=== PATIENT | female | born 1975 ===

== ENCOUNTER 2016-07-01 08:39 | Emergency (ER) | payer MEDICAID ==
[2016-07-01 08:40] VITALS: BMI 27.6
[2016-07-01 08:51] VITALS: RESP 18
[2016-07-01] MEDS ORDERED: Sodium Chloride 0.9% 1,000 ML IV ONE (09:37)
--- NOTE | 2016-07-01 09:48 | C.PDOC ---
History Of Present Illness 40-year-old female, PMHx includes Anemia and ovarian cysts, presents to the emergency department with complaints of left-sided pelvic pain that is dull and constant since yesterday. Patient notes associated hematuria/dysuria. She denies diarrhea, fever, vaginal bleeding/discharge, vomiting/diarrhea. LMP was 06/18. Time Seen by Provider: 07/01/16 09:02 Chief Complaint (Nursing): Female Genitourinary History Per: Patient History/Exam Limitations: no limitations Onset/Duration Of Symptoms: Days Current Symptoms Are (Timing): Still Present Severity: Mild Quality Of Discomfort: "Pain" Past Medical History Reviewed: Historical Data, Nursing Documentation, Vital Signs Vital Signs: Last Vital Signs Temp 97.9 F 07/01/16 11:25 Pulse 77 07/01/16 11:25 Resp 18 07/01/16 11:25 BP 109/72 07/01/16 11:25 Pulse Ox 98 07/01/16 12:11 - Medical History PMH: Anemia, Peripheral Edema Family History: States: No Known Family Hx - Social History Hx Alcohol Use: No Hx Substance Use: No - Immunization History Hx Tetanus Toxoid Vaccination: No Hx Influenza Vaccination: No Hx Pneumococcal Vaccination: No Review Of Systems Except As Marked, All Systems Reviewed And Found Negative. Constitutional: Negative for: Fever, Chills Cardiovascular: Negative for: Chest Pain Respiratory: Negative for: Shortness of Breath Gastrointestinal: Negative for: Nausea, Vomiting, Diarrhea Genitourinary: Positive for: Dysuria, Hematuria. Negative for: Vaginal Discharge, Vaginal Bleeding Musculoskeletal: Positive for: Back Pain Skin: Negative for: Rash Neurological: Negative for: Headache, Dizziness Physical Exam - Physical Exam Appears: Well, Non-toxic, No Acute Distress Skin: Warm, Dry, No Rash Eye(s): bilateral: Normal Inspection Oral Mucosa: Moist Cardiovascular: Rhythm Regular Respiratory: Normal Breath Sounds, No Rales, No Rhonchi, No Wheezing Gastrointestinal/Abdominal: Normal Exam, Bowel Sounds, Soft, No Tenderness, No Guarding, No Rebound Back: No CVA Tenderness Pelvic: Normal External Exam, Normal Bimanual Exam, No Vaginal Bleeding, Vaginal Discharge (scant thin white discharge), No Cervical Motion Tenderness, No Cervix Open, No Adnexal Tenderness, No Mass, No Tender Uterus Extremity: Normal ROM Neurological/Psych: Oriented x3 ED Course And Treatment - Laboratory Results Result Diagrams: 07/01/16 10:18 07/01/16 10:18 O2 Sat by Pulse Oximetry: 98 (RA) Pulse Ox Interpretation: Normal Progress Note: Plan: Blood work, UA, UPreg, transvaginal US ordered and reviewed. Patient given IV NS bolus, did not want pain medication. UA shows UTI, patient given PO Ciprofloxacin. Reevaluation Time: 12:10 Reassessment Condition: Improved (Patient reassessed, is resting comfortably and states she feels better. Patient given Rx for Ciprofloxacin, and was instructed to follow up with her PMD in 1-2 days, an performance improvement specialist within 1 week. Copies of blood work, UA and transvaginal US given to patient. She understands she should return to ED if symptoms worsen.) Disposition Counseled Patient/Family Regarding: Studies Performed, Diagnosis, Need For Followup, Rx Given - Disposition Referrals: Tracy Meek MD [Resident] - Disposition: HOME/ ROUTINE Disposition Time: 12:15 Condition: STABLE Additional Instructions: FOLLOW UP WITH YOUR DOCTOR IN 1-2 DAYS, AND WITH [employer] WITHIN 1 WEEK USE MEDICATION DIRECTED DRINK PLENTY OF FLUIDS RETURN TO ER IF SYMPTOMS WORSEN Prescriptions: Ciprofloxacin [Cipro] 1 tab PO BID #14 tab Instructions: Urinary Tract Infection in Women (ED) Print Language: ANGUILLAN - POA Present On Arrival: None - Clinical Impression Clinical Impression: UTI (urinary tract infection), Acute hemorrhagic cystitis - Scribe Statement The provider has reviewed the documentation as recorded by the Kael Maloney All medical record entries made by the Kael were at my direction and personally dictated by me. I have reviewed the chart and agree that the record accurately reflects my personal performance of the history, physical exam, medical decision making, and the department course for this patient. I have also personally directed, reviewed, and agree with the discharge instructions and disposition.
[2016-07-01 09:53] LABS: RBC URINE 54 /hpf (0-3); URINE BACTERIA OCC (<OCC); URINE BILIRUBIN NEGATIVE (NEGATIVE); URINE BLOOD 2+ (NEGATIVE); URINE COLOR Yellow (YELLOW); URINE GLUCOSE (UA) NORMAL (Normal); URINE KETONE NEGATIVE (NEGATIVE); URINE LEUKOCYTE ESTERASE 3+ Leu/uL (Negative); URINE PROTEIN 1+ mg/dL (NEGATIVE); URINE UROBILINOGEN NORMAL mg/dL (0.2-1.0); WBC URINE 290 /hpf (0-5)
[2016-07-01] MEDS ORDERED: Sodium Chloride 0.9% 1,000 ML ONE (10:20)
[2016-07-01 10:22] LABS: BASO # 0.1 K/uL (0.0-0.2); BASO % 0.9 % (0.0-2.0); EOS # 0.1 K/uL (0.0-0.7); EOS % 0.6 % (0.0-4.0); HEMATOCRIT 37.4 % (34.0-47.0); LYMPH # 2.5 K/uL (1.0-4.3); LYMPH % 21.8 % (20.0-40.0); MEAN CORPUSCULAR HEMOGLOBIN 27.3 pg (27.0-31.0); MEAN CORPUSCULAR HGB CONC 31.7 g/dL (33.0-37.0); MEAN PLATELET VOLUME 9.4 fL (7.2-11.7); MONO # 0.5 K/uL (0.0-0.8); RED CELL DISTRIBUTION WIDTH 15.5 % (11.5-14.5)
[2016-07-01 10:24] LABS: MEAN CELL VOLUME 86.2 fL (81.0-99.0); WHITE BLOOD COUNT 11.4 K/uL (4.8-10.8)
[2016-07-01 10:36] LABS: CHLORIDE 99 mmol/L (98-107); SODIUM 136 mmol/L (132-148)
[2016-07-01 10:39] LABS: ALB/GLOB RATIO 1.1 (1.0-2.1); ALKALINE PHOSPHATASE 53 U/L (38-126); AST/SGOT 45 U/L (14-36); BLOOD UREA NITROGEN 11 mg/dL (7-17); CARBON DIOXIDE 24 mmol/L (22-30); GFR AFRICAN-AMERICAN > 60; TOTAL PROTEIN 7.6 g/dL (6.3-8.3)
[2016-07-01 10:40] LABS: ALT/SGPT 15 U/L (9-52); CALCIUM 8.5 mg/dl (8.6-10.4); GLUCOSE,RANDOM 90 mg/dL (65-105); POTASSIUM 5.4 mmol/L (3.6-5.2)
[2016-07-01 11:39] VITALS: BP 109/72; PULSE 77; TEMP 97.9
--- NOTE | 2016-07-01 11:43 | US ---
HISTORY: Left adnexal pain COMPARISON: None available. TECHNIQUE: Transvaginal pelvic ultrasound was performed. FINDINGS: UTERUS: Measures 8.7 x 4.7 x 5.0 cm. Anteverted, normal in size without evidence of fibroid or focal mass. There is slight heterogeneous myometrial echotexture with. No fibroid or other mass lesion seen. ENDOMETRIUM: Measures 7 mm in diameter. Unremarkable. CERVIX: No cervical abnormality identified. RIGHT OVARY: Measures 3.7 x 1.8 x 3.1 cm. No solid mass. Normal flow. LEFT OVARY: Measures 4.0 x 1.7 x 3.0 cm. No solid mass. Normal flow. FREE FLUID: No significant free fluid noted. OTHER FINDINGS: None. IMPRESSION: Mild heterogeneous myometrial echotexture. No evidence of fibroid uterus No evidence of ovarian mass or cyst.
[2016-07-01 12:07] VITALS: O2SAT 98
== END 2016-07-01 12:30 | disposition home or self-care (01) ==
LOC: C.ER 08:39
DX: N30.01 Acute cystitis with hematuria (principal)
CPT/HCPCS: 76830; 80053; 81001; 84703; 85025; 87086; 87181; 87491; 87591; 99285; J7040

== ENCOUNTER 2017-01-14 16:59 | Emergency (ER) | payer MEDICAID ==
[2017-01-14 17:00] VITALS: BMI 27.6
[2017-01-14 17:06] VITALS: TEMP 98.9; O2SAT 100
[2017-01-14 18:15] LABS: BASO # 0.1 K/uL (0.0-0.2); BASO % 1.3 % (0.0-2.0); EOS # 0.1 K/uL (0.0-0.7); EOS % 1.4 % (0.0-4.0); HEMATOCRIT 36.2 % (34.0-47.0); LYMPH % 36.2 % (20.0-40.0); MEAN CELL VOLUME 87.7 fL (81.0-99.0); MEAN CORPUSCULAR HEMOGLOBIN 28.7 pg (27.0-31.0); MEAN CORPUSCULAR HGB CONC 32.8 g/dL (33.0-37.0); MEAN PLATELET VOLUME 9.1 fL (7.2-11.7); MONO # 0.6 K/uL (0.0-0.8); MONO % 6.6 % (0.0-10.0); NRBC % 0.1 % (0.0-2.0); RED CELL DISTRIBUTION WIDTH 14.6 % (11.5-14.5); WHITE BLOOD COUNT 8.4 K/uL (4.8-10.8)
[2017-01-14 18:22] LABS: CHLORIDE 101 mmol/L (98-107); SODIUM 135 mmol/L (132-148)
[2017-01-14 18:23] LABS: POTASSIUM 4.1 mmol/L (3.6-5.2)
[2017-01-14 18:25] LABS: ALB/GLOB RATIO 1.1 (1.0-2.1); ALKALINE PHOSPHATASE 59 U/L (38-126); ALT/SGPT 32 U/L (9-52); AST/SGOT 18 U/L (14-36); BILIRUBIN,TOTAL 0.4 mg/dL (0.2-1.3); BLOOD UREA NITROGEN 11 mg/dL (7-17); CALCIUM 8.8 mg/dl (8.6-10.4); CARBON DIOXIDE 23 mmol/L (22-30); GFR AFRICAN-AMERICAN > 60; GLUCOSE,RANDOM 87 mg/dL (65-105); TOTAL PROTEIN 7.3 g/dL (6.3-8.3)
--- NOTE | 2017-01-14 18:52 | RAD ---
HISTORY: chest pain COMPARISON: Comparison is made to 04/06/2015 TECHNIQUE: Chest PA and lateral FINDINGS: LUNGS: No active pulmonary disease. PLEURA: No significant pleural effusion identified. No pneumothorax apparent. CARDIOVASCULAR: Normal. OSSEOUS STRUCTURES: No significant abnormalities. VISUALIZED UPPER ABDOMEN: Normal. OTHER FINDINGS: None. IMPRESSION: No active disease.
[2017-01-14] MEDS ORDERED: Iodixanol 320 MG/ML 100 ML BOTTLE IV ONE (19:22)
--- NOTE | 2017-01-14 20:02 | C.PDOC ---
History Of Present Illness 41 year old female presents to the ED with complaints of sharp sub-sternal chest pain for two days that radiates to the back with associated shortness of breath. Patient is taking oral contraceptives and denies fever, cough, nausea, or vomiting. Chief Complaint (Nursing): Chest Pain History Per: Patient History/Exam Limitations: no limitations Onset/Duration Of Symptoms: Days (2 days ) Current Symptoms Are (Timing): Still Present Quality: Sharp Modifying Factors: None Exacerbating Factors: None Alleviating Factors: None Recent travel outside of the [place]: No Past Medical History Reviewed: Historical Data, Nursing Documentation, Vital Signs Vital Signs: Last Vital Signs Temp 98.9 F 01/14/17 17:03 Pulse 80 01/14/17 19:30 Resp 14 01/14/17 19:30 BP 120/80 01/14/17 19:30 Pulse Ox 100 01/14/17 22:01 - Medical History PMH: Anemia, Peripheral Edema Family History: States: Unknown Family Hx - Social History Hx Alcohol Use: No Hx Substance Use: No - Immunization History Hx Tetanus Toxoid Vaccination: No Hx Influenza Vaccination: No Hx Pneumococcal Vaccination: No Review Of Systems Constitutional: Negative for: Fever, Chills Cardiovascular: Positive for: Chest Pain. Negative for: Palpitations Respiratory: Negative for: Cough, Shortness of Breath Gastrointestinal: Negative for: Nausea, Vomiting, Abdominal Pain Neurological: Negative for: Weakness, Numbness Physical Exam - Physical Exam Appears: Non-toxic, No Acute Distress Skin: Warm, Dry Head: Atraumatic, Normacephalic Eye(s): bilateral: Normal Inspection, PERRL, EOMI Oral Mucosa: Moist Chest: Symmetrical, No Deformity Cardiovascular: Rhythm Regular, No Murmur Respiratory: No Rales, No Rhonchi, No Wheezing, Other (clear to auscultation bilaterally ) Gastrointestinal/Abdominal: Soft, No Tenderness, No Distention, No Guarding, No Rebound Extremity: Normal ROM, No Tenderness, No Pedal Edema, No Calf Tenderness, No Deformity, No Swelling Neurological/Psych: Oriented x3 ED Course And Treatment - Laboratory Results Result Diagrams: 01/14/17 18:11 01/14/17 18:11 ECG: Interpreted By Me, Viewed By Me ECG Rhythm: Sinus Rhythm Interpretation Of ECG: Normal axis. Incomplete right bundle branch block. Rate From EC O2 Sat by Pulse Oximetry: 100 (RA) - CT Scan/US CT Angiography Chest With Intravenous Contrast Other Rad Studies (CT/US): Read By Radiologist, Radiology Report Reviewed CT/US Interpretation: FINDINGS: Pulmonary arteries: No pulmonary embolism. Aorta: No aneurysm. No dissection. Lungs: Minimal atelectasis. No consolidation. RUL calcified granuloma. Pleural space: No significant effusion. No pneumothorax. Heart: No cardiomegaly. No significant pericardial effusion. Mediastinum: Soft tissue density within anterior mediastinum, likely residual thymus. Bones/joints: No acute fracture. No dislocation. Soft tissues : Unremarkable. Lymph nodes: No pathologically enlarged lymph nodes. IMPRESSION: 1. No CT evidence of pulmonary embolism. 2. Incidental/non-acute findings are described above. Progress Note: Angio chest CT, EKG, and labs were ordered. Patient was given Tordaol. Disposition - [facility] - Disposition: HOME/ ROUTINE Disposition Time: 21:20 Condition: GOOD Additional Instructions: Thank you for letting us take care of you today. Your provider was Dr. Yepez. You were treated for noncardiac chest pain. The emergency medical care you received today was directed at your acute symptoms. If you were prescribed any medication, please fill it and take as directed. It may take several days for your symptoms to resolve. Return to the Emergency Department if your symptoms worsen, do not improve, or if you have any other problems. Please contact your doctor or call one of the physicians/clinics you have been referred to that are listed on the Patient Visit Information form that is included in your discharge packet. Bring any paperwork you were given at discharge with you along with any medications you are taking to your follow up visit. Our treatment cannot replace ongoing medical care by a primary care provider (PCP) outside of the emergency department. Thank you for allowing the [facility] team to be part of your care today. Follow up with your doctor in 2-3 days for re-evaluation and further management. Prescriptions: Ibuprofen [Motrin] 600 mg PO Q6 PRN #20 tab PRN Reason: Pain, Moderate (4-7) Instructions: Noncardiac Chest Pain (ED) Forms: [employer] (Kosovan) - Clinical Impression Clinical Impression: Pleuritic pain - Scribe Statement The provider has reviewed the documentation as recorded by the Scribe Jenna Alvarado All medical record entries made by the Scribe were at my direction and personally dictated by me. I have reviewed the chart and agree that the record accurately reflects my personal performance of the history, physical exam, medical decision making, and the department course for this patient. I have also personally directed, reviewed, and agree with the discharge instructions and disposition.
--- NOTE | 2017-01-14 21:16 | CT ---
EXAM: CT Angiography Chest With Intravenous Contrast CLINICAL HISTORY: 41 years old, female; Signs and symptoms; Shortness of breath; Additional info: R/O pe TECHNIQUE: Axial computed tomographic angiography images of the chest with intravenous contrast using pulmonary embolism protocol. All CT scans at this facility use one or more dose reduction techniques, viz.: automated exposure control; ma/kV adjustment per patient size (including targeted exams where dose is matched to indication; i.e. head); or iterative reconstruction technique. MIP reconstructed images were created and reviewed. Coronal and sagittal reformatted images were created and reviewed. CONTRAST: 100 mL of visipaque 320 administered intravenously. COMPARISON: CR - CHEST TWO VIEWS (PA/LAT) 04/06/2015 10:57:46 AM FINDINGS: Pulmonary arteries: No pulmonary embolism. Aorta: No aneurysm. No dissection. Lungs: Minimal atelectasis. No consolidation. RUL calcified granuloma. Pleural space: No significant effusion. No pneumothorax. Heart: No cardiomegaly. No significant pericardial effusion. Mediastinum: Soft tissue density within anterior mediastinum, likely residual thymus. Bones/joints: No acute fracture. No dislocation. Soft tissues: Unremarkable. Lymph nodes: No pathologically enlarged lymph nodes. IMPRESSION: 1. No CT evidence of pulmonary embolism. 2. Incidental/non-acute findings are described above.
[2017-01-14 21:56] VITALS: BP 120/80; PULSE 80; RESP 14
--- NOTE | 2017-01-17 19:10 | CARD ---
APPROVED REPORT EKG Measurement Heart [id number] <Conclusion> Normal sinus rhythm Incomplete right bundle branch block Borderline ECG
== END 2017-01-14 21:56 | disposition home or self-care (01) ==
LOC: C.ER 16:59
DX: R07.81 Pleurodynia (principal)
CPT/HCPCS: 71020; 71275; 80053; 83690; 84484; 85025; 85378; 96374; 99285; J1885; Q9967

== ENCOUNTER 2018-02-07 14:41 | Emergency (ER) | payer MEDICAID ==
[2018-02-07 14:42] VITALS: BMI 27.6
[2018-02-07 15:23] VITALS: O2SAT 100
[2018-02-07] MEDS ORDERED: Sodium Chloride 0.9% 1,000 ML IV ONE (16:27)
[2018-02-07] MEDS ORDERED: Sodium Chloride 0.9% 1,000 ML ONE (16:57)
--- NOTE | 2018-02-07 17:24 | C.PDOC ---
History Of Present Illness 42-year-old female, presents to the emergency department with complaints of left sided back pain that started today, associated with hematuria and dysuria. (+) urinary frequency. Patient denies fever, nausea/vomiting, abdominal pain, chest pain, sob, vaginal bleeding. No h/o kidney stones. Time Seen by Provider: 02/07/18 16:17 Chief Complaint (Nursing): Back Pain History Per: Patient History/Exam Limitations: no limitations Past Medical History Reviewed: Historical Data, Nursing Documentation, Vital Signs Vital Signs: Last Vital Signs Temp 99.1 F 02/07/18 15:19 Pulse 82 02/07/18 15:19 Resp 18 02/07/18 15:19 BP 121/82 02/07/18 15:19 Pulse Ox 100 02/07/18 15:19 - Medical History PMH: Anemia, Peripheral Edema Family History: States: No Known Family Hx - Social History Hx Alcohol Use: No Hx Substance Use: No - Immunization History Hx Tetanus Toxoid Vaccination: No Hx Influenza Vaccination: No Hx Pneumococcal Vaccination: No Review Of Systems Constitutional: Negative for: Fever Gastrointestinal: Negative for: Nausea, Vomiting Genitourinary: Positive for: Dysuria, Hematuria Musculoskeletal: Positive for: Back Pain Physical Exam - Physical Exam Appears: Non-toxic, No Acute Distress Skin: Normal Color, Warm, Dry, No Rash Head: Atraumatic, Normacephalic Eye(s): bilateral: Normal Inspection, PERRL, EOMI Nose: Normal Oral Mucosa: Moist Lips: Normal Appearing Neck: Normal ROM, Supple Chest: Symmetrical Cardiovascular: Rhythm Regular Respiratory: Normal Breath Sounds, No Accessory Muscle Use Gastrointestinal/Abdominal: Soft, No Tenderness Back: CVA Tenderness (left), No Vertebral Tenderness Extremity: Normal ROM, No Deformity Neurological/Psych: Oriented x3, Normal Speech ED Course And Treatment - Laboratory Results Result Diagrams: 02/07/18 17:57 02/07/18 17:57 O2 Sat by Pulse Oximetry: 100 Pulse Ox Interpretation: Normal (RA) Progress Note: Bloodwork, CT Abd/Pel and UA ordered and reviewed. Patient treated with IVF, Toradol. On re-evlauation, pt is tolerating po. Afebrile. no acute distress. abdomen soft, nontender. Discussed results of CT with pt. Pt admits to constipation. Discussed diet changes. Copies of CT given for re- evaluation with PMD in 1-2 days. Discussed return precautions. Case discussed with Dr Ceja, who instructs Vitan and discharge. Disposition - Disposition Disposition: HOME/ ROUTINE Disposition Time: 18:49 Condition: STABLE Additional Instructions: Follow up with primary medical doctor in 1-3 days without fail for further evaluation. Take medications as prescribed. Return to the emergency department at any time if symptoms persist or worsen. Prescriptions: Cefpodoxime [Vantin] 100 mg PO BID #20 tab Phenazopyridine HCl [Pyridium] 100 mg PO TID #6 tablet Polyethylene Glycol 3350 [Miralax] 17 gm PO DAILY #85 gm Instructions: Kidney Infection (DC) Forms: [facility] (Martiniquais) - Clinical Impression Clinical Impression: Pyelonephritis - Scribe Statement The provider has reviewed the documentation as recorded by the Scribe (Rose Maloney) All medical record entries made by the Scribe were at my direction and personally dictated by me. I have reviewed the chart and agree that the record accurately reflects my personal performance of the history, physical exam, medical decision making, and the department course for this patient. I have also personally directed, reviewed, and agree with the discharge instructions and disposition.
[2018-02-07 18:01] LABS: BASO # 0.1 K/uL (0.0-0.2); BASO % 0.5 % (0.0-2.0); EOS # 0.1 K/uL (0.0-0.7); EOS % 1.3 % (0.0-4.0); HEMOGLOBIN 12.6 g/dL (11.0-16.0); LYMPH # 3.5 K/uL (1.0-4.3); LYMPH % 30.9 % (20.0-40.0); MEAN CELL VOLUME 88.6 fL (81.0-99.0); MEAN CORPUSCULAR HGB CONC 32.7 g/dL (33.0-37.0); MEAN PLATELET VOLUME 9.5 fL (7.2-11.7); MONO # 0.6 K/uL (0.0-0.8); MONO % 5.4 % (0.0-10.0); NEUT % 61.9 % (50.0-75.0); RBC 4.33 Mil/uL (3.80-5.20); RED CELL DISTRIBUTION WIDTH 14.3 % (11.5-14.5); WHITE BLOOD COUNT 11.3 K/uL (4.8-10.8)
[2018-02-07 18:08] LABS: HCG,QUALITATIVE URINE NEGATIVE (NEGATIVE)
[2018-02-07 18:13] LABS: SQUAMOUS EPITHIAL < 1 /hpf (0-5); URINE BACTERIA RARE (<OCC); URINE BILIRUBIN NEGATIVE (NEGATIVE); URINE BLOOD 1+ (NEGATIVE); URINE CLARITY Hazy (Clear); URINE COLOR Yellow (YELLOW); URINE GLUCOSE (UA) NORMAL (Normal); URINE LEUKOCYTE ESTERASE 3+ Leu/uL (Negative); URINE PROTEIN 2+ mg/dL (NEGATIVE)
[2018-02-07 18:15] LABS: ALB/GLOB RATIO 1.2 (1.0-2.1); ALBUMIN 3.9 g/dL (3.5-5.0); ALT/SGPT 19 U/L (9-52); AST/SGOT 17 U/L (14-36); BLOOD UREA NITROGEN 13 mg/dL (7-17); CALCIUM 8.8 mg/dl (8.6-10.4); GFR NON-AFRICAN AMERICAN > 60; LIPASE 84 U/L (23-300)
[2018-02-07] MEDS ORDERED: cefTRIAXone IV 1 gm in Dextros 50 ML IV ONE (18:16)
[2018-02-07] MEDS ORDERED: cefTRIAXone 1 gm 1 GM/100 ML BAG IVPB ONE (18:44)
--- NOTE | 2018-02-07 18:46 | CT ---
PROCEDURE: CT Abdomen and Pelvis without Oral or IV contrast. HISTORY: Pain COMPARISON: None available. TECHNIQUE: Contiguous axial images of the abdomen and pelvis. No oral or IV contrast administered. Coronal and Sagittal reformats generated and reviewed. Radiation dose: Total exam DLP = 508.89 mGy-cm. This CT exam was performed using one or more of the following dose reduction techniques: Automated exposure control, adjustment of the mA and/or kV according to patient size, and/or use of iterative reconstruction technique. FINDINGS: There is limited evaluation of the solid organs without the administration of IV contrast. LOWER THORAX: Mild bibasilar atelectasis. There is no visible pleural effusion or pneumothorax. LIVER: Unremarkable unenhanced appearance. GALLBLADDER AND BILE DUCTS: Gallbladder appears incompletely distended and somewhat thick walled, possibly with sludge. PANCREAS: Unremarkable unenhanced appearance. SPLEEN: Unremarkable unenhanced appearance. ADRENALS: Unremarkable unenhanced appearance. KIDNEYS AND URETERS: No hydronephrosis or obstructing renal calculus. Punctate nonobstructing 2 mm left lower pole calculus. BLADDER: The urinary bladder appears unremarkable. REPRODUCTIVE: Uterus is present. 9 mm probable right ovarian cyst. APPENDIX: The appendix appears within normal limits of caliber. No secondary signs of acute appendicitis. BOWEL: The stomach is nondistended. Lack of oral contrast limits evaluation for bowel pathology. The bowel loops appear within normal limits of caliber without evidence of intestinal obstruction. Moderate constipation. Question rectal impaction. PERITONEUM: No significant free fluid. No definite free air. LYMPH NODES: No bulky lymphadenopathy identified. VASCULATURE: No atherosclerotic calcifications of the aorta present. No aortic aneurysm. BONES: No acute osseous abnormality is detected. OTHER FINDINGS: 18 mm fat containing umbilical hernia. IMPRESSION: Gallbladder appears incompletely distended and somewhat thick walled, possibly with sludge. Right upper quadrant ultrasound may be considered for further evaluation. Moderate constipation. Question rectal impaction. 9 mm probable right ovarian cyst. Additional findings as above.
[2018-02-07 19:43] VITALS: BP 107/70; PULSE 87; RESP 20; TEMP 98.8
== END 2018-02-07 19:20 | disposition home or self-care (01) ==
LOC: C.ER 14:41
DX: N12 Tubulo-interstitial nephritis, not specified as acute or chronic (principal)
CPT/HCPCS: 74176; 80053; 81001; 83690; 84703; 85025; 87086; 96361; 96374; 96375; 99284; J0696; J1885; J7030

== ENCOUNTER 2018-03-14 08:32 | Emergency (ER) | payer MEDICAID ==
[2018-03-14 08:32] VITALS: BMI 27.6
[2018-03-14 08:42] VITALS: RESP 20; O2SAT 100
[2018-03-14] MEDS ORDERED: Sodium Chloride 0.9% 1,000 ML IV STA (09:14)
--- NOTE | 2018-03-14 09:35 | RAD ---
Date of service: 03/14/2018 HISTORY: wheezing COMPARISON: Comparison chest 01/14/2017 TECHNIQUE: Chest PA and lateral FINDINGS: LUNGS: Vague opacity seen overlying the right lung base possibly representing atelectasis versus developing infiltrate. PLEURA: No significant pleural effusion identified. No pneumothorax apparent. CARDIOVASCULAR: No aortic atherosclerotic calcification present. Normal cardiac size. No pulmonary vascular congestion. OSSEOUS STRUCTURES: No significant abnormalities. VISUALIZED UPPER ABDOMEN: Normal. OTHER FINDINGS: None. IMPRESSION: Questionable atelectasis and/or infiltrate overlying right lung base.
--- NOTE | 2018-03-14 09:38 | C.PDOC ---
History Of Present Illness 42 y/o female presents to the ER for evaluation of productive cough w/yellow sputum, shortness of breath, fever, and body aches which have been present for the past few days. Patient states that her Tmax was 101.5 F. Patient reports that her daughter was diagnosed with pneumonia 2 weeks ago. Denies having CP, nausea, vomiting, abdominal pain,and leg swelling. Time Seen by Provider: 03/14/18 08:32 Chief Complaint (Nursing): Flu-like Symptoms History Per: Patient History/Exam Limitations: no limitations Onset/Duration Of Symptoms: Days Current Symptoms Are (Timing): Still Present Severity: Moderate Past Medical History Reviewed: Historical Data, Nursing Documentation, Vital Signs Vital Signs: Last Vital Signs Temp 98.4 F 03/14/18 08:38 Pulse 104 H 03/14/18 08:38 Resp 20 03/14/18 08:38 BP 115/82 03/14/18 08:38 Pulse Ox 100 03/14/18 08:38 - Medical History PMH: Anemia, Peripheral Edema Other Surgeries: Hx of surgeries Family History: States: No Known Family Hx - Social History Hx Alcohol Use: No Hx Substance Use: No - Immunization History Hx Tetanus Toxoid Vaccination: No Hx Influenza Vaccination: No Hx Pneumococcal Vaccination: No Review Of Systems Except As Marked, All Systems Reviewed And Found Negative. Constitutional: Positive for: Fever. Negative for: Chills Cardiovascular: Negative for: Chest Pain Respiratory: Positive for: Cough, Shortness of Breath Gastrointestinal: Negative for: Nausea, Vomiting, Abdominal Pain Physical Exam - Physical Exam Additional Physical Exam Comments: Constitutional: No acute distress. Head: Normocephalic. Atraumatic. Eyes: PERRL. ENT: Moist mucous membranes. Neck: Supple. Cardiovascular: Regular rate. Radial pulse 2+ bilaterally. Chest: No tenderness. Respiratory: Diffuse Wheezing. No Rales. No Rhonchi. GI: Soft. Nontender. Nondistended. Back: No CVA tenderness. Musculoskeletal: No tenderness or swelling of extremities. Skin: No rash. Neurologic: Alert, no focal deficit. ED Course And Treatment - Laboratory Results Result Diagrams: 03/14/18 09:39 03/14/18 09:39 O2 Sat by Pulse Oximetry: 100 (RA) Pulse Ox Interpretation: Normal Medical Decision Making Medical Decision Making: Plan: --Labs --CXR --UA --HCG, Qual. --IV Fluids --Toradol IV --Zofran IV CXR Impression: Questionable atelectasis and/or infiltrate overlying right lung base. Patient in no distress, vitals improved. Will discharged home, CURB65 score 0. Instructed to return to ED for worsening pain, breathing, work of breathing, or any other problem. Disposition - Disposition Referrals: [facility] [Outside] Disposition: HOME/ ROUTINE Disposition Time: 11:25 Condition: STABLE Prescriptions: levoFLOXacin [Levaquin] 1 tab PO DAILY #7 tab Instructions: Pneumonia in Adults Forms: [facility] (Welsh), Work Excuse - Clinical Impression Clinical Impression: Pneumonia - Scribe Statement The provider has reviewed the documentation as recorded by the [place]ibe Cris Mello Provider Attestation: All medical record entries made by the Scribe were at my direction and personally dictated by me. I have reviewed the chart and agree that the record accurately reflects my personal performance of the history, physical exam, medical decision making, and the department course for this patient. I have also personally directed, reviewed, and agree with the discharge instructions and disposition.
[2018-03-14] MEDS ORDERED: Sodium Chloride 0.9% 1,000 ML ONE (09:40)
[2018-03-14 09:44] LABS: BASO # 0.1 K/uL (0.0-0.2); BASO % 0.9 % (0.0-2.0); EOS # 0.3 K/uL (0.0-0.7); EOS % 3.3 % (0.0-4.0); HEMOGLOBIN 12.5 g/dL (11.0-16.0); LYMPH # 1.7 K/uL (1.0-4.3); LYMPH % 19.8 % (20.0-40.0); MEAN CELL VOLUME 89.8 fL (81.0-99.0); MEAN CORPUSCULAR HEMOGLOBIN 29.3 pg (27.0-31.0); MEAN CORPUSCULAR HGB CONC 32.6 g/dL (33.0-37.0); MEAN PLATELET VOLUME 9.4 fL (7.2-11.7); MONO # 0.6 K/uL (0.0-0.8); MONO % 7.6 % (0.0-10.0); NEUT # 5.8 K/uL (1.8-7.0); NEUT % 68.4 % (50.0-75.0); RBC 4.25 Mil/uL (3.80-5.20); RED CELL DISTRIBUTION WIDTH 14.4 % (11.5-14.5); WHITE BLOOD COUNT 8.5 K/uL (4.8-10.8)
[2018-03-14 09:55] LABS: ALB/GLOB RATIO 1.1 (1.0-2.1); ALBUMIN 3.9 g/dL (3.5-5.0); ALT/SGPT 22 U/L (9-52); AST/SGOT 16 U/L (14-36); BLOOD UREA NITROGEN 7 mg/dL (7-17); CALCIUM 8.6 mg/dl (8.6-10.4); GFR NON-AFRICAN AMERICAN > 60; LIPASE 42 U/L (23-300)
[2018-03-14 10:30] LABS: HCG,QUALITATIVE URINE NEGATIVE (NEGATIVE)
[2018-03-14 10:33] LABS: SQUAMOUS EPITHIAL 4 /hpf (0-5); URINE BACTERIA RARE (<OCC); URINE BILIRUBIN NEGATIVE (NEGATIVE); URINE BLOOD 1+ (NEGATIVE); URINE CLARITY Hazy (Clear); URINE COLOR Yellow (YELLOW); URINE GLUCOSE (UA) NORMAL (Normal); URINE LEUKOCYTE ESTERASE 2+ Leu/uL (Negative); URINE PROTEIN 1+ mg/dL (NEGATIVE)
[2018-03-14 10:50] VITALS: BP 102/65; PULSE 91; TEMP 99.2
== END 2018-03-14 11:35 | disposition home or self-care (01) ==
LOC: C.ER 08:32
DX: J18.9 Pneumonia, unspecified organism (principal)
CPT/HCPCS: 71046; 80053; 81001; 83690; 84703; 85025; 87086; 87804; 96361; 96374; 96375; 99285; J1885; J2405; J7030

== ENCOUNTER 2018-08-09 09:40 | Emergency (ER) | payer MEDICAID ==
[2018-08-09 09:40] VITALS: BMI 27.6
[2018-08-09 10:41] LABS: BASO % 0.5 % (0.0-2.0); EOS # 0.1 K/uL (0.0-0.7); EOS % 1.1 % (0.0-4.0); HEMOGLOBIN 13.3 g/dL (11.0-16.0); LYMPH # 1.4 K/uL (1.0-4.3); LYMPH % 14.2 % (20.0-40.0); MEAN CELL VOLUME 91.5 fL (81.0-99.0); MEAN CORPUSCULAR HEMOGLOBIN 30.2 pg (27.0-31.0); MEAN PLATELET VOLUME 9.9 fL (7.2-11.7); MONO # 0.4 K/uL (0.0-0.8); MONO % 3.8 % (0.0-10.0); NEUT # 7.7 K/uL (1.8-7.0); NEUT % 80.4 % (50.0-75.0); RBC 4.42 Mil/uL (3.80-5.20); RED CELL DISTRIBUTION WIDTH 13.9 % (11.5-14.5); WHITE BLOOD COUNT 9.6 K/uL (4.8-10.8)
[2018-08-09 10:44] LABS: HCG,QUALITATIVE URINE NEGATIVE (NEGATIVE)
[2018-08-09 10:48] LABS: SQUAMOUS EPITHIAL 7 /hpf (0-5); URINE BACTERIA RARE (<OCC); URINE BILIRUBIN NEGATIVE (NEGATIVE); URINE BLOOD NEGATIVE (NEGATIVE); URINE CLARITY Hazy (Clear); URINE COLOR Yellow (YELLOW); URINE GLUCOSE (UA) NORMAL (Normal); URINE LEUKOCYTE ESTERASE 2+ Leu/uL (Negative); URINE PROTEIN NEGATIVE (NEGATIVE); URINE UROBILINOGEN NORMAL mg/dL (0.2-1.0)
[2018-08-09 10:55] LABS: ALB/GLOB RATIO 1.3 (1.0-2.1); ALBUMIN 4.4 g/dL (3.5-5.0); ALT/SGPT 23 U/L (9-52); AST/SGOT 26 U/L (14-36); BLOOD UREA NITROGEN 10 mg/dL (7-17); GFR NON-AFRICAN AMERICAN > 60
--- NOTE | 2018-08-09 10:56 | RAD ---
Date of service: 08/09/2018 PROCEDURE: CHEST RADIOGRAPH, 1 VIEW HISTORY: SOB, CP COMPARISON: 03/14/2018 FINDINGS: LUNGS: Clear. PLEURA: No pneumothorax or pleural fluid seen. CARDIOVASCULAR: No aortic atherosclerotic calcification present. Normal. OSSEOUS STRUCTURES: No significant abnormalities. VISUALIZED UPPER ABDOMEN: Normal. OTHER FINDINGS: None. IMPRESSION: Unremarkable examination.
[2018-08-09 10:57] LABS: INR 1.1
[2018-08-09 11:07] LABS: CK-MB 0.27 ng/mL (0.0-3.38)
[2018-08-09 11:41] VITALS: O2SAT 100
[2018-08-09] MEDS ORDERED: Iodixanol 320 MG/ML 100 ML BOTTLE IV ONE (12:13)
--- NOTE | 2018-08-09 13:29 | CT ---
Date of service: 08/09/2018 CTA chest PE protocol Indication: chest pain, sob, elevated ddimer Technique: Contiguous axial images were obtained through the chest with intravenous contrast enhancement. Sagittal and coronal reconstructions were generated and reviewed. This CT exam was performed using 1 or more of the following dose reduction techniques: Automated exposure control, adjustment of the MAA and/or kV according to patient size, and/or use of iterative reconstruction technique. IV contrast: 100 mL Visipaque 320 IV Radiation dose (DLP): 489.07 MGy-cm. Comparison: Chest x-ray performed 08/09/18 Findings: Visualized portions of the inferior thyroid gland appear unremarkable. The mediastinal and hilar vascular structures appear within normal limits. The heart appears within normal limits of size. No large central or segmental pulmonary embolus evident. No focal consolidation. No pleural effusion. No pneumothorax. Punctate right upper lobe calcified granuloma. Limited visualized portions of the upper abdomen; irregular thick-walled partially imaged gallbladder. No acute osseous abnormality is detected. Impression: No large central or segmental pulmonary embolus identified. Partially imaged upper abdomen demonstrates irregular thick-walled gallbladder; recommend further evaluation with right upper quadrant ultrasound.
[2018-08-09 14:05] VITALS: RESP 18; TEMP 98.4
--- NOTE | 2018-08-09 15:09 | US ---
Date of service: 08/09/2018 HISTORY: abn CT for GB, chest pain COMPARISON: Angio chest PE study 08/09/2018 TECHNIQUE: Sonographic evaluation of the right upper quadrant of the abdomen. FINDINGS: LIVER: Measures 12.8 cm in length. Diffuse increased echogenicity of the liver parenchyma. No mass. No intrahepatic bile duct dilatation. GALLBLADDER: There are multiple gallstones shadowing in the gallbladder. Much of the gallbladder is obscured by these shadowing stones. Gallbladder wall measures 2.7 mm.. Gallbladder appears contracted. No positive ultrasound Infante sign was elicited. No pericholecystic fluid noted. COMMON BILE DUCT: Measures 36 mm. No stones. No dilatation. PANCREAS: Limited evaluation due to obscuring bowel gas. RIGHT KIDNEY: Measures 10.7 x 4.2 x 5.3 cm in length. Normal echogenicity. No calculus, mass, or hydronephrosis. AORTA: No aneurysmal dilatation. IVC: Unremarkable. OTHER FINDINGS: None . IMPRESSION: Abnormal appearing gallbladder-the filled with large gallstones. No gallbladder wall thickening or pericholecystic fluid seen to suggest currently an acute cholecystitis. Continued surveillance recommended. The gallbladder is contracted and packed with large gallstones. Some of these gallstones measure 2.0 cm in within some measured 2.3 cm in width. No dilated ducts appreciated. Hepatic steatosis.
[2018-08-09 15:24] VITALS: BP 118/76; PULSE 98
--- NOTE | 2018-08-09 15:25 | C.PDOC ---
History Of Present Illness Patient is a 42 year old female who presents to the ED for evaluation of mid chest pain that began yesterday. Patient states that the pain is "a little to the right". She notes that she is anxious, SOB, and a little nauseous, but has not vomited. She notes that she is on control. She denies any fever, chills, CP, SOB, diarrhea, or smoking. Time Seen by Provider: 08/09/18 10:01 Chief Complaint (Nursing): Chest Pain History Per: Patient History/Exam Limitations: no limitations Onset/Duration Of Symptoms: Days (1) Current Symptoms Are (Timing): Still Present Quality: "Pain" Associated Symptoms: Nausea Recent travel outside of the [place]: No Additional History Per: Patient Past Medical History Reviewed: Historical Data, Nursing Documentation, Vital Signs Vital Signs: Last Vital Signs Temp 98.4 F 08/09/18 14:04 Pulse 84 08/09/18 14:04 Resp 18 08/09/18 14:04 BP 110/64 08/09/18 14:04 Pulse Ox 100 08/09/18 14:04 Primary Care Provider: FAMILY PROVIDER,NO - Medical History PMH: Anemia, Peripheral Edema Surgical History: No Surg Hx Family History: States: No Known Family Hx - Social History Hx Alcohol Use: No Hx Substance Use: No - Immunization History Hx Tetanus Toxoid Vaccination: No Hx Influenza Vaccination: No Hx Pneumococcal Vaccination: No Review Of Systems Except As Marked, All Systems Reviewed And Found Negative. Constitutional: Negative for: Fever, Chills Cardiovascular: Positive for: Chest Pain (mid chest) Respiratory: Positive for: Shortness of Breath Gastrointestinal: Positive for: Nausea. Negative for: Vomiting, Diarrhea Psych: Positive for: Anxiety Physical Exam - Physical Exam Appears: Non-toxic, No Acute Distress Skin: Warm, Dry Head: Atraumatic, Normacephalic Oral Mucosa: Moist Neck: Normal ROM, Supple Chest: Symmetrical, No Deformity, No Tenderness Cardiovascular: Rhythm Regular, No Murmur Respiratory: Normal Breath Sounds, No Rales, No Rhonchi, No Wheezing Gastrointestinal/Abdominal: Tenderness (mild epigastric ), No Rebound Extremity: Normal ROM Neurological/Psych: Oriented x3 ED Course And Treatment - Laboratory Results Result Diagrams: 08/09/18 10:30 08/09/18 10:30 Lab Results: PT 12.0 SECONDS (9.7-12.2) 08/09/18 10:30 INR 1.1 08/09/18 10:30 APTT 27.0 SECONDS (21-34) 08/09/18 10:30 D-Dimer, Quantitative 426 ng/mlDDU (0-243) H 08/09/18 10:30 Troponin I 0.0520 ng/mL (0.00-0.120) 08/09/18 10:30 Total Bilirubin 0.4 mg/dL (0.2-1.3) 08/09/18 10:30 AST 26 U/L (14-36) 08/09/18 10:30 ALT 23 U/L (9-52) 08/09/18 10:30 Alkaline Phosphatase 72 U/L (38-126) 08/09/18 10:30 Total Protein 7.8 g/dL (6.3-8.3) 08/09/18 10:30 Albumin 4.4 g/dL (3.5-5.0) 08/09/18 10:30 Globulin 3.4 gm/dL (2.2-3.9) 08/09/18 10:30 Albumin/Globulin Ratio 1.3 (1.0-2.1) 08/09/18 10:30 Urine Color Yellow (YELLOW) 08/09/18 10:30 Urine Clarity Hazy (Clear) 08/09/18 10:30 Urine pH 7.0 (5.0-8.0) 08/09/18 10:30 Ur Specific [place] 1.015 (1.003-1.030) 08/09/18 10:30 Urine Protein Negative mg/dL (NEGATIVE) 08/09/18 10:30 Urine Glucose (UA) Normal mg/dL (Normal) 08/09/18 10:30 Urine Ketones Negative mg/dL (NEGATIVE) 08/09/18 10:30 Urine Blood Negative (NEGATIVE) 08/09/18 10:30 Urine Nitrate Negative (NEGATIVE) 08/09/18 10:30 Urine Bilirubin Negative (NEGATIVE) 08/09/18 10:30 Urine Urobilinogen Normal mg/dL (0.2-1.0) 08/09/18 10:30 Ur Leukocyte Esterase 2+ Carmen/uL (Negative) H 08/09/18 10:30 Urine WBC (Auto) 10 /hpf (0-5) H 08/09/18 10:30 Urine RBC (Auto) 3 /hpf (0-3) 08/09/18 10:30 Ur Squamous Epith Cells 7 /hpf (0-5) H 08/09/18 10:30 Urine Bacteria Rare (<OCC) 08/09/18 10:30 Urine HCG, Qual Negative (NEGATIVE) 08/09/18 10:30 Urine HCG, Qual Negative (NEGATIVE) 08/09/18 10:30 ECG: Interpreted By Me, Viewed By Me ECG Rhythm: Sinus Tachycardia Interpretation Of ECG: No acute changes. Rate From EC O2 Sat by Pulse Oximetry: 100 (on RA) Pulse Ox Interpretation: Normal - Other Rad CXR X-Ray: Viewed By Me, Read By Radiologist Interpretation: Date of service: 08/09/2018. PROCEDURE: CHEST RADIOGRAPH, 1 VIEW. HISTORY: SOB, CP. COMPARISON: 03/14/2018. FINDINGS: LUNGS: Clear. PLEURA: No pneumothorax or pleural fluid seen. CARDIOVASCULAR: No aortic atherosclerotic calcification present. Normal. OSSEOUS STRUCTURES: No significant abnormalities. VISUALIZED UPPER ABDOMEN: Normal. OTHER FINDINGS: None. IMPRESSION: Unremarkable examination. - CT Scan/US US Abd Other Rad Studies (CT/US): Read By Radiologist, Radiology Report Reviewed CT/US Interpretation: Date of service: 08/09/2018. HISTORY: abn CT for GB, chest pain. COMPARISON: Angio chest PE study 08/09/2018. TECHNIQUE: Sonographic evaluation of the right upper quadrant of the abdomen. FINDINGS: LIVER: Measures 12.8 cm in length. Diffuse increased echogenicity of the liver parenchyma. No mass. No intrahepatic bile duct dilatation. GALLBLADDER: There are multiple gallstones shadowing in the gallbladder. Much of the gallbladder i s obscured by these shadowing stones. Gallbladder wall measures 2.7 mm.. Gallbladder appears contracted. No positive ultrasound Infante sign was elicited. No pericholecystic fluid noted. COMMON BILE DUCT: Measures 36 mm. No stones. No dilatation. PANCREAS: Limited evaluation due to obscuring bowel gas. RIGHT KIDNEY: Measures 10.7 x 4.2 x 5.3 cm in length. Normal echogenicity. No calculus, mass, or hydronephrosis. AORTA: No aneurysmal dilatation. IVC: Unremarkable. OTHER FINDINGS: None . IMPRESSION: Abnormal appearing gallbladder-the filled with large gallstones. No gallbladder wall thickening or pericholecystic fluid seen to suggest currently an acute cholecystitis. Continued surveillance recommended. The gallbladder is contracted and packed with large gallstones. Some of these gallstones measure 2.0 cm in within some measured 2.3 cm in width. No dilated ducts appreciated. Hepatic steatosis. CTA Other Rad Studies (CT/US): Read By Radiologist, Radiology Report Reviewed CT/US Interpretation: Date of service: 08/09/2018. CTA chest PE protocol. Indication: chest pain, sob, elevated ddimer. Technique: Contiguous axial images were obtained through the chest with intravenous contrast enhancement. Sagittal and coronal reconstructions were generated and reviewed. This CT exam was performed using 1 or more of the following dose reduction techniques: Automated exposure control, adjustment of the MAA and/or kV according to patient size, and/or use of iterative reconstruction technique. IV contrast: 100 mL Vi sipaque 320 IV. . Radiation dose (DLP): 489.07 MGy-cm. Comparison: Chest x- ray performed 08/09/18. Findings: Visualized portions of the inferior thyroid gland appear unremarkable. The mediastinal and hilar vascular structures appear within normal limits. The heart appears within normal limits of size. No large central or segmental pulmonary embolus evident. No focal consolidation. No pleural effusion. No pneumothorax. Punctate right upper lobe calcified granuloma. Limited visualized portions of the upper abdomen; irregular thick- walled partially imaged gallbladder. No acute osseous abnormality is detected. Impression: No large central or segmental pulmonary embolus identified. Par tially imaged upper abdomen demonstrates irregular thick-walled gallbladder; recommend further evaluation with right upper quadrant ultrasound. Progress Note: Plan: UA. EKG. Bloodwork. CXR. CTA. US Abd. Patient's D- dimer was elevated. CTA negative, but abnormal looking gallbladder noted. US Abd showed gallbladder full of stones. On reexamination, patient feels better and is ambulatory and asymptomatic and no longer SOB or nauseous. She was referred to go to PMD and to see a general surgeon. Disposition - Disposition Disposition: HOME/ ROUTINE Disposition Time: 15:23 Condition: IMPROVED Additional Instructions: Follow up with your PMD and General family support specialist within 2-3 days. Return to ED immediately if feels worse. Prescriptions: Famotidine [Pepcid] 20 mg PO BID #20 tab Instructions: Gallstones Forms: [employer] LIM[employer] ([place]) - Clinical Impression Clinical Impression: Chest pain, Cholelithiasis - PA / [employer] / Resident Statement MD/DO has examined the patient and agrees with the treatment plan. - Scribe Statement The provider has reviewed the documentation as recorded by the Kael Mata All medical record entries made by the [place] were at my direction and personally dictated by me. I have reviewed the chart and agree that the record accurately reflects my personal performance of the history, physical exam, medical decision making, and the department course for this patient. I have also personally directed, reviewed, and agree with the discharge instructions and disposition.
--- NOTE | 2018-08-10 14:38 | CARD ---
APPROVED REPORT Date of service: 08/09/2018 EKG Measurement Heart [id number] <Conclusion> Sinus tachycardia Possible Left atrial enlargement RSR' or QR pattern in V1 suggests right ventricular conduction delay Borderline ECG
== END 2018-08-09 15:50 | disposition home or self-care (01) ==
LOC: C.ER 09:40
DX: K80.20 Calculus of gallbladder without cholecystitis without obstruction (principal); R07.9 Chest pain, unspecified
CPT/HCPCS: 71045; 71275; 76705; 80053; 81001; 81025; 82550; 82553; 84484; 84703; 85025; 85378; 85610; 85730; 93005; 99285; Q9967